=== PATIENT | female | born 1945 | race Caucasian/White ===

== ENCOUNTER 2016-09-11 16:54 | Emergency (ER) | payer MEDICARE, OTHER ==
[2016-09-11] MEDS ORDERED: Sodium Chloride 0.9% 10 ML Syringe FLUSH PRN (17:16)
[2016-09-11] MEDS ORDERED: Aspirin 81 MG Tab.Chew PO ONE (17:35)
[2016-09-11] MEDS ORDERED: Nitroglycerin 2% Oint 1 GM UD Packet TOP ONE (17:35)
--- NOTE | 2016-09-11 19:04 | EDM.PDOC ---
ED HISTORY OF PRESENT ILLNESS - General Chief Complaint: Chest Pain Time Seen by Provider: 09/11/16 17:05 Source of Information: Reports: Patient, RN notes reviewed - History of Present Illness INITIAL COMMENTS - FREE TEXT/NARRATIVE: 71-year-old female comes in with left neck discomfort. She had onset of this about 40 minutes ago while shopping. She states that she then became lightheaded dizzy and "had to sit down". The dizziness resolved fairly quickly. However she still does have the left neck discomfort. She has no anterior chest discomfort at this time and also other than a short "twinge"of discomfort no major chest heaviness or tightness. she did not have radiation of pain to the shoulder or arm or back. She does not recall becoming short of breath. No abdominal pain nausea vomiting. No significant diaphoresis. She does have history of coronary disease. She did have one stent placed quite 2 years ago followed by 4 stands about 2 or 3 years ago. He states that he "stent collapsed " about 3 or 4 months ago and she had that artery "restented" at that time. She is on daily aspirin in addition to her other medications for hypertension and coronary artery disease. she has not been coughing or ill with any other unusual symptoms recently. - Related Data Allergies/ADRs: Allergies Allergy/AdvReac Type Severity Reaction Status Date / Time acetaminophen [From [place]] Allergy Hives Verified 09/11/16 17:17 hydrocodone [From [place]] Allergy Hives Verified 09/11/16 17:17 orange Allergy Mouth Sores Verified 09/11/16 17:07 Sulfa (Sulfonamide Allergy Other Verified 09/11/16 17:07 Antibiotics) wool Allergy Hives Verified 09/11/16 17:07 Home Meds: Home Meds Aspirin [Halfprin] 81 mg PO BRK 09/11/16 [History] Clobetasol [Clobetasol Propionate 0.05%] 30 gm TOP BID 09/11/16 [History] Famotidine 20 mg PO BID PRN 09/11/16 [History] Ketoconazole [Ketoconazole 2%] 1 applic TOP BID 09/11/16 [History] Lisinopril 10 mg PO DAILY 09/11/16 [History] Metoprolol Tartrate [Lopressor] 100 mg PO BID 09/11/16 [History] Nitroglycerin [Nitrostat] 0.4 mg SL Q5M 09/11/16 [History] Sertraline [Zoloft] 50 mg PO DAILY 09/11/16 [History] amLODIPine [Norvasc] 5 mg PO DAILY 09/11/16 [History] oxyCODONE HCl/Acetaminophen [oxyCODONE-Acetaminophen 5-325] 1 - 2 tab PO Q6H PRN 09/11/16 [History] traZODone 100 mg PO BEDTIME 09/11/16 [History] Past Medical History Cardiovascular History: Reports: Hypertension, VT, Stents 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: Reports: Musculoskeletal History: Reports: Arthritis, Fracture Other Musculoskeletal History: right shoulder Neurological History: Reports: Migraines Dermatologic History: Reports: Eczema - Past Surgical History Cardiovascular Surgical History: Reports: Coronary artery stent GI Surgical History: Reports: Appendectomy, Cholecystectomy Female Surgical History: Reports: section, Tubal ligation Social & Family History - Family History Family Medical History: Noncontributory - Tobacco Use Smoking Status *Q: Current Every Day Smoker Years of Tobacco use: 40 Packs/Tins Daily: 0.5 - Caffeine Use Caffeine Use: Reports: None - Recreational Drug Use Recreational Drug Use: No ED ROS GENERAL - Review of Systems Review Of Systems: See Below Constitutional: Denies: fever, chills, diaphoresis HEENT: Reports: Other (she does feel discomfort of the left neck). Denies: Sinus problem, Throat pain Respiratory: Denies: shortness of breath, wheezing, pleuritic chest pain Cardiovascular: Reports: Chest pain, Lightheadedness (brief, mild, gonegone) GI/Abdominal: Denies: Abdominal pain, Nausea, Vomiting Musculoskeletal: Reports: neck pain (mild left base). Denies: shoulder pain, arm pain, back pain Skin: Denies: diaphoresis Neurological: Reports: dizziness (gone). Denies: headache, numbness, tingling, trouble speaking ED EXAM, GENERAL - Physical Exam Exam: See Below General Appearance: alert, no apparent distress Eye Exam: bilateral eye: PERRL Nose: normal inspection Throat/Mouth: Normal inspection, Normal oropharynx Head: atraumatic. No: facial swelling Neck: supple, tender lateral (very slight tenderness of the soft tissue of the left anterior neck, no visible swelling, no warmth or erythema present). No: lymphadenopathy (L), lymphadenopathy (R) Respiratory/Chest: no respiratory distress, lungs clear, normal breath sounds Cardiovascular: regular rate, rhythm GI/Abdominal: soft, non tender. No: guarding Back Exam: normal inspection. No: CVA tenderness (L), CVA tenderness (R) Extremities: normal inspection. No: pedal edema, leg pain Neurological: alert, oriented, no motor/sensory deficits Skin Exam: Warm, Dry, Normal color EKG INTERPRETATION EKG Date: 09/11/16 Rhythm: NSR [place]: normal P-wave: present QRS: other (Q waves V2 and V3) ST-T: elevated (slight ST elevation in V2) Course - Vital Signs Last Recorded V/S: Last Vital Signs Temp 98 F 09/11/16 16:58 Pulse 80 09/11/16 16:58 Resp 24 H 09/11/16 16:58 BP 128/67 09/11/16 16:58 Pulse Ox 94 L 09/11/16 16:58 - Orders/Labs/Meds Orders: Active Orders 24 hr Category Date Time Status EKG 12 Lead [EKG Documentation Completion] [RC] STAT Care 09/11/16 17:18 Active Peripheral IV Care [RC] . DIRECTED Care 09/11/16 17:21 Active Chest 1V Frontal [CR] Stat Exams 09/11/16 17:37 Taken Sodium Chloride 0.9% [Saline Flush] Med 09/11/16 17:16 Active 10 ml FLUSH ASDIRECTED PRN Peripheral IV Insertion Adult [OM.PC] Stat Oth 09/11/16 17:18 Ordered Medication Orders Sodium Chloride (Saline Flush) 10 ml FLUSH ASDIRECTED PRN PRN Reason: Keep Vein Open Last Admin: 09/11/16 17:05 Dose: 10 ml Labs: Laboratory Tests 09/11/16 09/11/16 09/11/16 Range/Units 17:05 17:05 19:08 WBC 8.16 (3.98-10.04) K/mm3 RBC 4.59 (3.98-5.22) M/mm3 Hgb 12.7 (11.2-15.7) gm/L Hct 39.5 (34.1-44.9) % MCV 86.1 (79.4-94.8) fl MCH 27.7 (25.6-32.2) pg MCHC 32.2 (32.2-35.5) g/dl RDW Std Deviation 48.4 H (36.4-46.3) fL Plt Count 313 (182-369) K/mm3 MPV 10.0 (9.4-12.3) fl Neut % (Auto) 47.1 (34.0-71.1) % Lymph % (Auto) 38.8 (19.3-51.7) % [place] % (Auto) 10.8 (4.7-12.5) % Eos % (Auto) 2.9 (0.7-5.8) Baso % (Auto) 0.2 (0.1-1.2) % Neut # 3.83 (1.56-6.13) K/mm3 Lymph # 3.17 (1.18-3.74) K/mm3 [place] # 0.88 H (0.24-0.36) K/mm3 Eos # 0.24 (0.04-0.36) K/mm3 Baso # 0.02 (0.01-0.08) K/mm3 Sodium 140 (136-145) mEq/L Potassium 3.8 (3.5-5.1) mEq/L Chloride 103 (98-107) mEq/L Carbon Dioxide 26 (21-32) mEq/L Anion Gap 14.8 (5-15) BUN 19 H (7-18) mg/dL Creatinine 0.8 (0.55-1.02) mg/dL Est Cr Clr Drug Dosing 48.67 mL/min Estimated GFR (MDRD) > 60 (>60) mL/min BUN/Creatinine Ratio 23.8 H (14-18) Glucose 102 (83-115) mg/dL Calcium 9.1 (8.5-10.1) mg/dL Total Bilirubin 0.2 (0.2-1.0) mg/dL AST 15 (15-37) U/L ALT 23 (14-59) U/L Alkaline Phosphatase 91 (46-116) U/L Troponin I < 0.017 0.022 (0.00-0.056) ng/mL Total Protein 7.6 (6.4-8.2) g/dl Albumin 3.4 (3.4-5.0) g/dl Globulin 4.2 gm/dL Albumin/Globulin Ratio 0.8 L (1-2) Meds: Medications Generic Name Dose Route Start Last Admin Trade Name Kalani PRN Reason Stop Dose Admin Sodium Chloride 10 ml 09/11/16 17:16 09/11/16 17:05 Saline Flush FLUSH 10 ml ASDIRECTED PRN Administration Keep Vein Open Discontinued Medications Generic Name Dose Route Start Last Admin Trade Name Kalani PRN Reason Stop Dose Admin Aspirin 324 mg 09/11/16 17:35 09/11/16 17:47 Aspirin PO 09/11/16 17:36 324 mg ONETIME ONE Administration Nitroglycerin 1 gm 09/11/16 17:35 09/11/16 17:45 Nitro-Bid 2% TOP 09/11/16 17:36 1 gm ONETIME ONE Administration - Re-Assessments/Exams Free Text/Narrative Re-Assessment/Exam: 09/11/16 19:06. troponins come back normal, chest x-ray does not show acute findings. Other labs all relatively normal. The discomfort at the base of her left neck did go away fairly shortly after arrival to the ED. She is from [facility], your the 20 said he is [place]. We are going to do a repeat troponin. We'll have lab come draw that at this time. Departure - Departure Time of Disposition: 20:07 Disposition: Home, Self-Care 01 Condition: fair Clinical Impression: Atypical chest pain Referrals: PCP,Not In Area [Primary Care Provider] - Forms: ED Department Discharge Additional Instructions: your EKG did not show acute heart attack. Your initial troponin (cardiac marker ) was at our normal baseline reading of 0.017. your followup troponin did elevate slightly to 0.022. our laboratory cut off for a positive reading would be any reading above 0.056. I would suggest calling your regular doctor's nurse tomorrow morning and share this information with them. I would suggest asking if they really intend for you to not be on Plavix or similar type of blood thinner medication or if it should be restarted at this time. Seek medical attention immediately if you have any further reoccurrence of neck, chest or other discomfort, especially if there is radiation of discomfort to the shoulder or to her arm, or if you become weak, lightheaded dizzy or other unusual symptomatology. We have offered to admit you into the hospital overnight for observation, cardiac monitering and for further tracking or your troponin levels. You are choosing rather to be discharged at this time. - My Orders Last 24 Hours: My Active Orders 09/11/16 17:16 Sodium Chloride 0.9% [Saline Flush] 10 ml FLUSH ASDIRECTED PRN 09/11/16 17:18 EKG 12 Lead [EKG Documentation Completion] [RC] STAT Peripheral IV Insertion Adult [OM.PC] Stat 09/11/16 17:21 Peripheral IV Care [RC] . DIRECTED 09/11/16 17:37 Chest 1V Frontal [CR] Stat - Assessment/Plan Last 24 Hours: My Active Orders 09/11/16 17:16 Sodium Chloride 0.9% [Saline Flush] 10 ml FLUSH ASDIRECTED PRN 09/11/16 17:18 EKG 12 Lead [EKG Documentation Completion] [RC] STAT Peripheral IV Insertion Adult [OM.PC] Stat 09/11/16 17:21 Peripheral IV Care [RC] . DIRECTED 09/11/16 17:37 Chest 1V Frontal [CR] Stat
[2016-09-11 20:10] VITALS: BP 144/55
--- NOTE | 2016-09-13 08:46 | CR ---
Chest: Frontal view of the chest was obtained utilizing portable technique. Comparison: No previous study. Heart is mildly enlarged. Upper mediastinum is within normal limits. Pulmonary vessels are somewhat increased which likely are chronic. No alveolar infiltrate is seen. Bony structures are osteopenic. Impression: 1. Findings as noted above felt to be chronic. Nothing acute is suspected. Diagnostic code #2
== END 2016-09-11 20:19 | disposition home or self-care (01) ==
LOC: JD.ED 16:54
DX: R07.89 Other chest pain (principal); I25.2 Old myocardial infarction; I10 Essential (primary) hypertension; Z90.49 Acquired absence of other specified parts of digestive tract; Z98.51 Tubal ligation status; Z95.5 Presence of coronary angioplasty implant and graft; Z98.890 Other specified postprocedural states; Z79.82 Long term (current) use of aspirin; Z79.899 Other long term (current) drug therapy; Z88.2 Allergy status to sulfonamides; Z88.8 Allergy status to other drugs, medicaments and biological substances; Z91.018 Allergy to other foods; Z91.048 Other nonmedicinal substance allergy status
CPT/HCPCS: 36415; 71010; 80053; 84484; 85025; 93005; 99284; A9270; J7050; 99285-25